=== PATIENT | male | born 1970 | race Caucasian/White ===

== ENCOUNTER 2021-11-19 17:19 | Emergency (ER) | payer OTHER, SELFPAY ==
[2021-11-19 17:40] VITALS: BP 158/91; PULSE 109; RESP 18; TEMP 36.6; O2SAT 97; BMI 24.3
[2021-11-19] MEDS: OXYMETAZOLINE NASAL SPRAY 15 ML 2 SPRAYS NASAL (17:44)
--- NOTE | 2021-11-19 17:46 | PC.NURSE ---
Patient brought back to RM 2. MD at bedside, unable to locate area of bleeding. Rhino Rocket placed in left nostril. Patient tolerated well.
--- NOTE | 2021-11-19 18:14 | ED_ITS ---
HPI - Epistaxis General Chief complaint: Nasal Problem Stated complaint: nose bleeds Time Seen by Provider: 11/19/21 17:44 History of Present Illness HPI Narrative: 51M nonsmoker without any significant chronic medical history presents with significant other the chief complaint of brisk bleeding from his left nostril that started spontaneously about a 1/2 hour prior to his arrival. He denies any trauma, illness, or use of blood thinners including aspirin. He has no systemic findings such as dizziness, weakness or lightheadedness. He states he has had difficulty pinching off the bleeding and states he can feel going down the back of his throat also when he pinches it comes out his right nostril as well. He states he has been having increasing episodes of bleeding since he moved here from [place]. He has a referral to see ENT in about a month as it is Related Data Allergies Allergy/AdvReac Type Severity Reaction Status Date / Time No Known Drug Allergies Allergy Verified 11/19/21 17:44 Review of Systems Review of Systems Narrative: GENERAL: Denies chills, fatigue, malaise, fever, sweats. HEENT: See HPI RESPIRATORY: Denies dyspnea, cough, wheezing, hemoptysis, sputum. CARDIOVASCULAR: Denies chest pain, palpitations, orthopnea, edema, GASTROINTESTINAL: Denies nausea, vomiting, abdominal pain, diarrhea, constipation, melena. : Denies dysuria, frequency, incontinence, hematuria, urinary retention. MUSCULOSKELETAL: denies weakness, joint pain, or bony pain SKIN: Denies rash, skin lesions, or other NEUROLOGIC: Denies weakness, headache, numbness, change in speech, confusion, seizures, incoordination. PSYCHIATRIC: No concerning psychosocial issues. 12 point review of systems is negative except for those stated above Patient History Medical History Anxiety Basal cell carcinoma (BCC) Benign familial tremor (~1999) Bilateral shoulder pain Bladder spasm (~2001) Chicken pox (~1976) Depression Esophageal spasm (~2016) Foot pain (~2014) Hearing loss (~2018) Hypertension (~2020) Low testosterone (~2009) Osteoarthritis (~2014) Skin cancer (~2011) Sleep disorder Tinnitus (~2018) Surgical History Anesthesia History of foot surgery (~08/2014) History of knee surgery (~06/2014) History of nasal septoplasty (~03/2019) History of shoulder replacement S/P deep brain stimulator placement (~2014) Social History Smoking Status: Never smoker Smoking Status: Never smoker Substance Use Type: does not use Exam Narrative Exam Narrative: GENERAL: [51] year old patient appears stated age. Well-developed patient, in mild distress. HEAD: Atraumatic. Normocephalic. EYES: Pupils equal round and reactive. Extraocular motions intact. No scleral icterus. No injection or drainage. ENT: Heavy bleeding with fresh clots from left nostril, unable to visualize source of bleeding, blood noted in posterior pharynx NECK: Trachea midline. Non tender CARDIOVASCULAR: Regular rate and rhythm without murmurs, gallops, or rubs. RESPIRATORY: Clear to auscultation. Breath sounds equal bilaterally. No wheezes, rales, or rhonchi. GASTROINTESTINAL: Abdomen soft, non-tender, nondistended. EXTREMITIES: No edema or joint tenderness. BACK: Nontender without deformity or crepitance. No flank tenderness. NEURO: AOx3. SKIN: No rash or erythema of visible areas Initial Vital Signs Initial Vital Signs: Vital Signs Temperature 97.8 F 11/19/21 17:40 Pulse Rate 109 H 11/19/21 17:40 Respiratory Rate 18 11/19/21 17:40 Blood Pressure 158/91 H 11/19/21 17:40 Pulse Oximetry 97 11/19/21 17:40 Procedures Epistaxis Control Nostril: left Nose Prepped With: oxymetazoline Direct Inspection: yes and unable to visualize Clots Removed by: blowing nose and suction Cautery Used: none Device Inserted: hemostatic balloon Patient Tolerated Procedure: well Course Orders Ordered: Discontinued Medications Oxymetazoline HCl (Oxymetazoline Nasal [place] 15 Ml) 2 sprays NASAL NOW ONE Stop: 11/19/21 17:37 Last Admin: 11/19/21 17:44 Dose: 2 sprays Documented by: RAMON Reevaluation(s) Reevaluation #1: Patient observed for about 45 minutes after the insertion of rhino rocket, no bleeding continues. Patient's vitals are stable, hemostasis achieved, he denies any systemic symptoms. Return precautions given and questions answered to his apparent satisfaction Vital Signs Vital signs: Vital Signs - 8 hr 11/19/21 17:40 11/19/21 18:33 Temperature 97.8 F Pulse Rate 109 H 83 Respiratory Rate 18 19 Blood Pressure 158/91 H 139/81 Pulse Oximetry 97 97 Discharge Plan Departure Patient Disposition: Home Clinical Impression: Epistaxis Instructions: DI for Nosebleed Activity Restrictions/Additional Instructions: *You have been diagnosed with [ acute posterior epistaxis ] *What to do: * do not blow your nose, stick your finger in her nose, or disturb nose for the next 24 hr. If you must sneeze please sneeze out your mouth like we talked about *if the Rhino Rocket comes out it's ok if there is no bleeding. If your bleeding starts again at home please place a portion of a cotton ball in your nostril and squirt some of the Afrin you were given in your nose. Apply the nose clamp and uses a watch or o'clock to time yourself for 15 min. At the end 15 min recheck for bleeding, if you continue to bleed please repeat the process for another 15 min. If at the end of 30 min you still have bleeding you should return to the emergency department *Follow up with ENT doctor, call tomorrow morning for an appointment. Let them know you were seen in the Emergency Department and that we ask that you be seen in follow up *Return to ER if you should have any new, worsening or concerning symptoms * if you are bleeding starts again at home please place a portion of a c otton ball in your nostril and squirt some of the Afrin you were given in your nose. Apply the nose clamp and uses a watch or o'clock to time yourself for 15 min. At the end 15 min recheck for bleeding, if you continue to bleed please repeat the process for another 15 min. If at the end of 30 min you still have bleeding you should return to the emergency department Referrals: Chay Smith MD [Physician] -
[2021-11-19 18:33] VITALS: BP 139/81; PULSE 83; RESP 19; O2SAT 97
== END 2021-11-19 18:44 | disposition home or self-care (01) ==
PROVIDERS: Emergency Provider Emergency Medicine
DX: R04.0 Epistaxis (principal)
CPT/HCPCS: 30903; 30905; 99282; A9270

== ENCOUNTER → 2022-06-17 15:38 | Outpatient (CLI) | payer OTHER, SELFPAY ==
[2022-06-17 18:06] LABS: Hematocrit 40.7 % (41-53); Hemoglobin 13.6 g/dL (13.5-17.5); Mean Corpuscular HGB Conc 33.5 % (30-36); Mean Corpuscular Hemoglobin 29.4 PG (26-34); Mean Corpuscular Volume 87.7 fL (80-100); Platelet Count 308 X10^3/uL (150-400); Red Blood Cell Count 4.64 X10^6/uL (4.5-5.9); Red Cell Distribution Width 13.7 % (11.6-14.8); White Blood Cell Count 4.5 X10^3/uL (4.5-11.0)
[2022-06-17 18:19] LABS: Alanine Aminotransferase 18 IU/L (<50); Albumin 4.3 g/dL (3.5-5.0); Albumin Globulin Ratio 1.3 (1.0-2.8); Alkaline Phosphatase 65 U/L (38-126); Aspartate Aminotransferase 34 IU/L (17-59); BUN Creatinine Ratio 19.8 (6-22); Bilirubin Total 0.3 mg/dL (0.2-1.3); Blood Urea Nitrogen 19 mg/dL (9-20); Calcium 9.5 mg/dL (8.4-10.2); Carbon Dioxide 30 mmol/L (22-32); Chloride 99 mmol/L (98-107); Cholesterol 155 mg/dL (140-199); Estimated Glomerular Filt Rate > 60 mL/min (>60); Globulin 3.2 g/dL (1.7-4.1); Glucose 76 mg/dL (70-100); HDL Cholesterol 43 mg/dL (40-60); HEMOLYSIS < 15 (0-50); LDL Cholesterol Calculated 99 mg/dL (<100); Potassium 5.1 mmol/L (3.4-5.1); Sodium 138 mmol/L (137-145); Total Protein 7.5 g/dL (6.3-8.2); Triglycerides 63 mg/dL (35-150)
[2022-06-17 18:33] LABS: Follicle Stimulating Hormone < 0.66 mIU/mL; Luteinizing Hormone < 0.216 mIU/mL
[2022-06-17 18:35] LABS: Prolactin 11.5 ng/mL (3.7-17.9)
[2022-06-17 18:50] LABS: Prostate Specific Antigen 2.35 ng/mL (0.10-4.00)
[2022-06-17 18:52] LABS: Testosterone 422 ng/dL (71.8-623)
== END ==
PROVIDERS: PCP Internal Medicine; Referring Provider Internal Medicine; Visit Provider Internal Medicine
DX: Z00.00 Encounter for general adult medical examination without abnormal findings (principal); I10 Essential (primary) hypertension; E78.2 Mixed hyperlipidemia; Z12.5 Encounter for screening for malignant neoplasm of prostate
CPT/HCPCS: 36415; 80053; 80061; 83001; 83002; 84146; 84153; 84403; 84443; 85027; G0103

== ENCOUNTER → 2022-06-25 14:45 | Outpatient (CLI) | payer OTHER, SELFPAY ==
--- NOTE | 2022-06-25 14:45 | DI.RAD.S_ITS ---
PROCEDURE: XR DEXA AXIAL SKELETON INDICATIONS: hypogonadism COMPARISON: None. FINDINGS: This blank DEXA report has been sent in error by the PACS system. The correct and complete report will be forthcoming in 1-2 days. Thank you for your patience and understanding. Dictated by: Clarke Palomares M.D. on 07/01/2022 at 15:07 Approved by: Clarke Palomares M.D. on 07/01/2022 at 15:07
== END ==
PROVIDERS: PCP Internal Medicine; Referring Provider Internal Medicine; Visit Provider Internal Medicine
DX: Z13.820 Encounter for screening for osteoporosis (principal); E29.1 Testicular hypofunction
CPT/HCPCS: 77080

== ENCOUNTER → 2022-07-02 15:19 | Outpatient (CLI) | payer OTHER, SELFPAY ==
[2022-07-02 16:25] LABS: COVID19 -Nasal RAPID Negative (Negative)
== END ==
PROVIDERS: PCP Internal Medicine; Referring Provider Internal Medicine; Visit Provider Internal Medicine
DX: Z20.822 Contact with and (suspected) exposure to COVID-19 (principal)
CPT/HCPCS: 87635; C9803

== ENCOUNTER → 2022-07-03 14:37 | Outpatient (CLI) | payer OTHER, SELFPAY ==
--- NOTE | 2022-07-08 11:12 | PM.PFT.1 ---
Pulmonary Function Test Referral & Results Date Patient Seen: 07/03/22 Requesting provider: Trevon Lemus Results: The spirometry demonstrates an FVC of 4.82 L which is 81% of predicted. The FEV1 was measured at 3.59 L which is 78% of predicted. The FEV1/FVC ratio was 74 which is 95% of predicted. Following the administration of bronchodilator there was a 19% improvement in FEV1 and a 82% improvement in FEF 25-75%. Lung volumes show an SVC of 4.86 L which is 86% of predicted. The diffusing capacity was measured at 32.46 which is 83% of predicted. The maximum voluntary ventilation was probably normal Interpretation: This study demonstrates probably mild obstructive lung disease based on minimal reduction FEV1 although FEV1/FVC ratio is preserved. There is evidence of significant benefit following bronchodilator with a 19% improvement in FEV1 and an 82% improvement in FEF 25-75%. Shape a flow volume loop also does support the presence of some degree of obstructive lung disease Lung volumes are minimally reduced and should be considered either normal or perhaps evidence of very mild restrictive lung disease There is a very minimal reduction in diffusing capacity as well suggesting the possibility of disease at the capillary alveolar level Clinical correlation suggested
== END ==
PROVIDERS: PCP Internal Medicine; Referring Provider Internal Medicine; Visit Provider Internal Medicine
DX: J45.20 Mild intermittent asthma, uncomplicated (principal); Z87.891 Personal history of nicotine dependence
CPT/HCPCS: 94060; 94726; 94729

== ENCOUNTER → 2022-07-25 14:33 | Outpatient (CLI) | payer OTHER, SELFPAY ==
--- NOTE | 2022-07-25 | DI.CT.S_ITS ---
PROCEDURE: CT SHOULDER LEFT WITHOUT CON INDICATIONS: Polyosteoarthritis, unspecified TECHNIQUE: Noncontrast 1-1.5 mm thick sections acquired from the acromioclavicular joint to the inferior scapula, with coronal and sagittal reformatting. COMPARISON: None. FINDINGS: Image quality: There is metallic streak artifact from patient's shoulder prosthesis limiting evaluation. Bones: There is a left glenohumeral joint prosthesis demonstrated with associated metallic streak artifact secondary to the metallic humeral head component. There is a radiolucent glenoid component. No definite acute fracture or dislocation. There is irregularity along the margins of the fixation screws in the glenoid. Small clustered calcifications suggestive of mild fragmentation are demonstrated along the inferior aspect of the glenoid. No suspicious periprosthetic lucencies along the humeral head component. Soft tissues: There is a calcified joint body within the axillary pouch measuring up to 1.0 cm. Visualized musculature appears preserved. IMPRESSION: 1. Left glenohumeral prosthesis demonstrated without definite acute fracture or dislocation. 2. Irregularity along the margins of the fixation screws in the glenoid. The findings are nonspecific but loosening or infection cannot be excluded. 3. Mild fragmentation along the inferior aspect of the glenoid. The findings may be associated with fixation screw tracks in the inferior glenoid and again raise the possibility of loosening or infection. 4. Calcified joint body within the axillary pouch. Dictated by: Hilario Dawson M.D. on 07/27/2022 at 2:06 Approved by: Hilario Dawson M.D. on 07/27/2022 at 2:14
== END ==
PROVIDERS: PCP Internal Medicine; Referring Provider Internal Medicine; Visit Provider Internal Medicine
DX: M15.9 Polyosteoarthritis, unspecified (principal); Z96.612 Presence of left artificial shoulder joint
CPT/HCPCS: 73200

== ENCOUNTER → 2022-09-02 14:56 | Outpatient (CLI) | payer OTHER, SELFPAY ==
--- NOTE | 2022-09-02 14:57 | DI.CT.S_ITS ---
PROCEDURE: CT SINUS SCREEN WO CON INDICATIONS: CHRONIC PANSINUSITIS TECHNIQUE: Noncontrast 3.0 mm axial images acquired from the frontal sinuses to the mid-sella, with coronal and sagittal reformats. For radiation dose reduction, the following was used: automated exposure control, adjustment of mA and/or kV according to patient size. COMPARISON: None. FINDINGS: Image quality: Excellent. Maxillary Sinuses: No bony remodeling or destruction. Mild bilateral maxillary sinus mucosal thickening. Ethmoid Air Cells: No bony remodeling or destruction. Sinuses are clear. Sphenoid Sinuses: No bony remodeling or destruction. Mild mucosal thickening within the right sphenoid sinus.. Frontal Sinuses: No bony remodeling or destruction. Sinuses are clear. Ostiomeatal Complexes: Ostiomeatal complexes are patent. No Elaine cells. Miscellaneous: Visualized intra-orbital contents are normal. Right middle turbinate aleksey bullosa is present. No nasal septal deviation. Bilateral brainstem stimulators are present. IMPRESSION: 1. Mild maxillary and right sphenoid sinus mucosal thickening. 2. Right middle turbinate aleksey bullosa. Dictated by: Abdi Chopra M.D. on 09/02/2022 at 15:47 Approved by: Abdi Chopra M.D. on 09/02/2022 at 15:48
== END ==
PROVIDERS: PCP Internal Medicine; Referring Provider Otolaryngology; Visit Provider Otolaryngology
DX: J32.4 Chronic pansinusitis (principal); J34.89 Other specified disorders of nose and nasal sinuses; R43.8 Other disturbances of smell and taste; J34.3 Hypertrophy of nasal turbinates; Z96.82 Presence of neurostimulator
CPT/HCPCS: 70486

== ENCOUNTER 2022-11-27 20:35 | Emergency (ER) | payer OTHER, SELFPAY ==
[2022-11-27] VITALS (21 sets, daily range): BP systolic 141–184; BP diastolic 70–95; PULSE 83–108; RESP 19–49; TEMP 37.6; O2SAT 93–96; BMI 25.0
--- NOTE | 2022-11-27 20:42 | DI.RAD.S_ITS ---
PROCEDURE: XR SHOULDER RT MIN 2V INDICATIONS: pain with deformity TECHNIQUE: 2 views of the shoulder were acquired. COMPARISON: None. FINDINGS: Bones: No fractures but there has been a prior right total shoulder arthroplasty with current anterior subcoracoid dislocation. No suspicious bony lesions. Visualized ribs appear intact. Soft tissues: No suspicious soft tissue calcifications. IMPRESSION: Right total shoulder arthroplasty, currently dislocated anteriorly into the subcoracoid position. No associated fracture or evidence of device loosening or disruption. Dictated by: Esdras Reed M.D. on 11/27/2022 at 20:52 Approved by: Esdras Reed M.D. on 11/27/2022 at 20:53
--- NOTE | 2022-11-27 20:46 | PC.NURSE ---
Offered sling to patient at this time, patient adamantly refused sling at this time.
--- NOTE | 2022-11-27 21:10 | PC.NURSE ---
Pt in the lobby and not happy that he is not in a room yet. Pt states I am losing my pulse in that arm. I checked radial pulse by palpation,it was strong and palpable. Pt offered a sling for comfort which he refused at this time. Pt stated I can't move my arm to put the sling on and I have the highest pain tolerance in the world.. I informed pt that we are working on getting a room for him as soon as possible.
--- NOTE | 2022-11-27 21:11 | PC.NURSE ---
While returning to the ED this RN was flagged down by patient. Pt asked to speak to charge nurse regarding his care. Pt reports 10/10 pain, numbness and tingling to right hand. This RN felt a strong, bounding radial pulse of right hand. Offered patient sling as well as ice, but patient declined both. Let YOSEPH Hughes and YOSEPH Deutsch know patient's request.
--- NOTE | 2022-11-27 21:49 | ED.UPPEXIN ---
HPI - Extremity Injury (Upper) General Chief Complaint: Extremity Injury, Upper Stated Complaint: Reverse shoulder replacement popped out Time Seen by Provider: 11/27/22 21:35 Source: patient Mode of arrival: Ambulatory History of Present Illness HPI narrative: 52-year-old male former smoker with history of hypertension, hyperlipidemia, sleep apnea, deep brain stimulator presents with right shoulder dislocation within the last hour. He denies any specific or memorable event that led to the dislocation but now has significant pain and range of motion limited both by pain and mechanical obstruction. He does have numbness in his hand and fingers. He had a reverse shoulder surgery in 2019 and has had 1 prior dislocation that he reports was quite difficult to reduce. He is otherwise well and free of complaint Related Data Home Medications Medication Instructions Recorded Confirmed sodium oxybate 500 mg/mL oral 4.5 g PO BID 12/09/21 06/17/22 solution (Xyrem) cetirizine 10 mg tablet (Zyrtec) 30 mg PO DAILY 06/17/22 06/17/22 fluticasone propionate 50 1 spray intranasal DAILY 06/17/22 06/17/22 mcg/actuation nasal spray,suspension (Flonase Allergy Relief) phenelzine 15 mg tablet 75 mg PO DAILY 06/17/22 06/17/22 Previous Rx's Medication Instructions Recorded pantoprazole 40 mg tablet,delayed 40 mg PO DAILY #90 tabs 01/08/22 release tadalafil 5 mg tablet 5 mg PO DAILY bph/bladder spasm 01/08/22 #90 tabs testosterone cypionate 200 mg/mL 75 mg (0.375 mL) IM 2XW #10 mL 06/17/22 intramuscular oil (Depo-Testosterone) albuterol sulfate 90 mcg/actuation 2 puff inhalation Q6H PRN 07/10/22 aerosol inhaler (ProAir HFA) shortness of breath or wheezing #8.5 grams fluticasone propionate 100 1 inh inhalation BID #60 ea 07/10/22 mcg/actuation blister powder for inhalation (Flovent Diskus) methylphenidate HCl 10 mg tablet 10 mg PO TID PRN Narcolepsy #90 09/07/22 tabs Allergies Allergy/AdvReac Type Severity Reaction Status Date / Time fluoride Allergy Mild Unknown Verified 06/17/22 12:53 lisinopril AdvReac Intermediate Cough Verified 06/17/22 12:53 Review of Systems Review of Systems Narrative: GENERAL: Denies chills, fatigue, malaise, fever, sweats. HEENT: Denies sinus pain, ear pain, sore throat, difficulty swallowing, dizziness. RESPIRATORY: Denies dyspnea, cough, wheezing, hemoptysis, sputum. CARDIOVASCULAR: Denies chest pain, palpitations, orthopnea, edema, GASTROINTESTINAL: Denies nausea, vomiting, abdominal pain, diarrhea, constipation, melena. : Denies dysuria, frequency, incontinence, hematuria, urinary retention. MUSCULOSKELETAL: See HPI SKIN: Denies rash, skin lesions, or other NEUROLOGIC: See HPI PSYCHIATRIC: No concerning psychosocial issues. 12 point review of systems is negative except for those stated above Patient History Medical History Allergic rhinitis Anxiety Asthma, mild intermittent Basal cell carcinoma (BCC) Benign familial tremor (~1999) Bilateral shoulder pain Bladder spasm (~2001) BPH w urinary obs/LUTS Depression Encounter for general adult medical examination without abnormal findings Esophageal spasm (~2016) Essential hypertension Foot pain (~2014) Generalized anxiety disorder Hearing loss (~2018) Hypogonadism Mixed hyperlipidemia Narcolepsy Obstructive sleep apnea syndrome Osteoarthritis (~2014) Skin cancer (~2011) Tinnitus (~2018) Surgical History Anesthesia History of foot surgery (~08/2014) History of knee surgery (~06/2014) History of nasal septoplasty (~03/2019) History of shoulder replacement S/P deep brain stimulator placement (~2014) S/P deep brain stimulator placement 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 Well-developed patient, in obvious distress, complaining of pain and shoulder HEAD: Atraumatic. Normocephalic. EYES: Pupils equal round and reactive. Extraocular motions intact. No scleral icterus. No injection or drainage. ENT: Nose without bleeding, purulent drainage. Throat without erythema, tonsillar hypertrophy or exudate. Airway patent. NECK: Trachea midline. Non tender CARDIOVASCULAR: Regular rate and rhythm without murmurs, gallops, or rubs. RESPIRATORY: Clear to auscultation. Breath sounds equal bilaterally. No wheezes, rales, or rhonchi. GASTROINTESTINAL: Abdomen soft, non-tender, nondistended. EXTREMITIES: Obvious deformity to right shoulder consistent with dislocation, limited range of motion secondary to mechanical obstruction and pain. No pain in elbow or wrist, patient does report numbness in his hand, no measurable weakness BACK: Nontender without deformity or crepitance. No flank tenderness. NEURO: AOx3. SKIN: No rash or erythema of visible areas Initial Vital Signs Initial Vital Signs: Vital Signs Temperature 99.6 F 11/27/22 20:39 Pulse Rate 108 H 11/27/22 20:39 Respiratory Rate 22 11/27/22 20:39 Blood Pressure 182/95 H 11/27/22 20:39 Pulse Oximetry 96 11/27/22 20:39 Oxygen Delivery Method Room Air 11/27/22 20:39 Procedures Orthopedic Joint Reduction Joint #1: Time Out Performed: Yes Side: right Joint Reduction Location: shoulder Analgesia: procedural sedation Shoulder Technique Used (if applicable): traction/counter-traction and external rotation Technique used: traction/counter-traction and direct manipulation Post-reduction neuro exam: intact Post-reduction vascular: intact Post Reduction X-Ray Obtained: Yes Post Reduction X-Ray Results: reduced Splint Applied: Yes Patient Tolerated Procedure: Well Additional Comments: Procedure attempted twice, exam suggested successful reduction after 1st attempt, x-ray suggested reduction, however after meds wore off patient is still having pain and limited range of motion. Completely successful on 2nd attempt Orthopedic Splinting/Casting Injury #1: Side: right Upper Extremity Injury Location: shoulder Upper Extremity Immobilizer: sling/shoulder immobilizer Post splinting neuro exam: intact (Significantly improved neuro exam hand no longer numb though there is still some tingling in his thumb and portion of index finger no weakness) Post splinting vascular exam: intact Placed by: Provider Procedural Sedation Consent signed: Yes Time out performed: Yes Indication: fracture/dislocation reduction ASA Class: II Mallampati Airway Classification: Class II Preparation: environmental monitoring technician applied, pulse oximeter, capnometry used, supplemental O2 applied, suction/airway equipment at bedside and IV secured IV Propofol dose (mg): 200 Intraservice time/total sedation time (min): 12 ED Sedation Level: Moderate (Concious) Patient Tolerated Procedure: Well Complications: none Additional Comments: Procedure was completed twice, 1st reduction attempt x-rays suggested successful reduction but when meds wore off pain hits he was still having pain and limited range of motion therefore it was repeated Course Orders Ordered: Discontinued Medications Propofol (Propofol 200 Mg/20 Ml Vial) 180 mg 2 mg/kg (180 mg) IV NOW ONE Stop: 11/27/22 21:49 Last Admin: 11/27/22 21:57 Dose: 180 mg Documented By: NR Propofol (Propofol 200 Mg/20 Ml Vial) 180 mg 2 mg/kg (180 mg) IV NOW ONE Stop: 11/27/22 22:09 Last Admin: 11/27/22 22:55 Dose: 180 mg Documented By: NR Consultations Consultation #1: Discussed with Dr. Jewell (ortho), including review of history, physical exam and x-rays. Recommends sling, close follow-up on Wednesday. We did discuss that there is a small amount of residual numbness on the patient's thumb and after this discussion there is no recommendation or indication for any further procedure Vital Signs Vital signs: Vital Signs - 8 hr 11/27/22 20:39 Temperature 99.6 F Pulse Rate 108 H Respiratory Rate 22 Blood Pressure 182/95 H Pulse Oximetry 96 Oxygen Delivery Method Room Air MDM - Extremity Injury (Upper) MDM Narrative Medical decision making narrative: [52] year old patient presents with shoulder pain and concern for dislocation Multiple etiologies for patient's symptoms considered including, but not limited to: [Dislocation, fracture, sprain versus other] Prior Charts reviewed in our EMR Primary Historian: patient Imaging reviewed: Initial x-ray confirms anterior dislocation, 2nd x-ray would suggest successful reduction, however after repeat procedure the reduction is now clear as confirmed by 3rd x-ray Consultations: Orthopedist as noted above Patient's symptoms improved over duration of stay with above-stated therapies. Findings and discharge diagnosis discussed with patient/family followed by verbalization of understanding Return precautions discussed with patient/family whom verbalize understanding of diagnosis and plan Discharge Plan Departure Patient Disposition: Home Clinical Impression: Anterior dislocation of right shoulder Instructions: DI for Shoulder Dislocation Activity Restrictions/Additional Instructions: *You have been diagnosed with [ Right shoulder disclocation *What to do: *Please continue to take your regular medications as directed. [ ] New medication prescriptions sent to your pharmacy: [ ] [ ] New medication written as a paper prescription [x] Tylenol and occasional Motrin for pain *Please follow up with [ [facility] in 2-3 days, call for an appointment. Let them know you were seen in the Emergency Department and that we ask that you be seen in follow up. We will electronically transmit a record of today's note if your PCP is in our system *Return to Emergency Department if you should have any new, worsening or concerning symptoms, such as [worsening pain, significant swelling, cold extremities, numbness, tingling, weakness or other bothersome symptoms Keep your arm in the sling until follow up. Prescriptions: No Action Flovent Diskus 100 mcg/actuation blister with device 1 inh inhalation BID Qty: 60 5RF albuterol sulfate [ProAir HFA] 90 mcg/actuation HFA aerosol inhaler 2 puff inhalation Q6H PRN (Reason: shortness of breath or wheezing) Qty: 8.5 5RF methylphenidate HCl 10 mg tablet 10 mg PO TID PRN (Reason: Narcolepsy) Qty: 90 0RF Xyrem 500 mg/mL solution 4.5 g PO BID Rx Instructions: Taken 1x before bed. Wakes up 2-3 hours after and takes 2nd dose. phenelzine 15 mg tablet 75 mg PO DAILY Patient Comments: TAKE 5 TABLETS BY MOUTH DAILY fluticasone propionate [Flonase Allergy Relief] 50 mcg/actuation spray,suspension 1 spray intranasal DAILY Rx Instructions: administer into each nostril cetirizine [Zyrtec] 10 mg tablet 30 mg PO DAILY testosterone cypionate [Depo-Testosterone] 200 mg/mL oil 75 mg IM 2XW Qty: 10 1RF pantoprazole 40 mg tablet,delayed release (DR/EC) 40 mg PO DAILY Qty: 90 3RF tadalafil 5 mg tablet 5 mg PO DAILY Qty: 90 3RF Referrals: Josh Jewell MD [Physician] - Trevon Lemus MD [Primary Care Provider] - Stand Alone Forms: Patient Portal/API
[2022-11-27] MEDS: propofoL 200 MG/20 ML VIAL 180 MG IV ×2 (21:57→22:55)
--- NOTE | 2022-11-27 22:18 | DI.RAD.S_ITS ---
PROCEDURE: XR SHOULDER RT 1V INDICATIONS: POST REDUCTION TECHNIQUE: Single frontal view of the shoulder were acquired. COMPARISON: [facility], CR, XR SHOULDER RT MIN 2V, 11/27/2022, 20:40. FINDINGS: Bones: No fractures or dislocations. No suspicious bony lesions. Visualized ribs appear intact. Soft tissues: No suspicious soft tissue calcifications. IMPRESSION: Interval reduction of dislocation right shoulder. No fracture found. Dictated by: Esdras Reed M.D. on 11/27/2022 at 22:45 Approved by: Esdras Reed M.D. on 11/27/2022 at 22:46
--- NOTE | 2022-11-27 22:20 | PC.NURSE ---
proprofol pushed by provider Mendoza. 40mg propofol @2157 30mg @2158 40mg @2159 30mg@2200 20mg @2202 30mg@2203 10mg@2205 total of 200mg propofol given. pt placed on 2L O2 during procedure by RT due to oxygen dipping into low 90s pt maintained airway during procedure. xray ordered after procedure, noted joint not in place, procedure to be preformed a second time.
--- NOTE | 2022-11-27 22:50 | DI.RAD.S_ITS ---
PROCEDURE: XR SHOULDER RT 1V INDICATIONS: RELOCATION TECHNIQUE: Single frontal views of the shoulder were acquired. COMPARISON: [facility], CR, XR SHOULDER RT 1V, 11/27/2022, 22:03. [facility], CR, XR SHOULDER RT MIN 2V, 11/27/2022, 20:40. FINDINGS: Bones: No fractures or dislocations. Plain film imaging earlier this evening at approximately 8:40 p.m. Had shown clear anterior subcoracoid dislocation of the right shoulder total arthroplasty. A subsequent evaluation at approximately 10:00 p.m. Had appeared improved in malalignment but the current study shows what appears to be successful complete reduction of shoulder dislocation No suspicious bony lesions. Visualized ribs appear intact. Soft tissues: No suspicious soft tissue calcifications. IMPRESSION: Apparent complete reduction of shoulder dislocation with reference to the 2 prior studies earlier this evening. No osseous fracture found, no device loosening or disruption. Dictated by: Esdras Reed M.D. on 11/27/2022 at 23:02 Approved by: Esdras Reed M.D. on 11/27/2022 at 23:04
--- NOTE | 2022-11-27 22:56 | PC.NURSE ---
during second attempt at relocation of right shoulder, provider administered propofol to patient in increments as follows. 80mg @ 2238 50mg @ 2239 50mg @2241 20mg @2244 patient placed back in sling by provider and nurse. shoulder immobilizer. xray ordered immediately. pt rousable to verbal stimuli almost immediately after procedure.
== END 2022-11-27 23:42 | disposition home or self-care (01) ==
PROVIDERS: Emergency Provider Emergency Medicine; PCP Internal Medicine
DX: S43.004A Unspecified dislocation of right shoulder joint, initial encounter (principal)
CPT/HCPCS: 23650; 73020; 73030; 99152; 99284; J2704

== ENCOUNTER → 2023-01-04 16:24 | Outpatient (CLI) | payer OTHER, SELFPAY ==
[2023-01-04 16:55] LABS: Hematocrit 41.4 % (41-53); Mean Corpuscular HGB Conc 33.7 % (30-36); Mean Corpuscular Hemoglobin 27.7 PG (26-34); Mean Corpuscular Volume 82.2 fL (80-100); Platelet Count 286 X10^3/uL (150-400); Red Blood Cell Count 5.04 X10^6/uL (4.5-5.9); Red Cell Distribution Width 14.9 % (11.6-14.8); White Blood Cell Count 5.7 X10^3/uL (4.5-11.0)
[2023-01-04 17:15] LABS: Neutrophils Absolute Manual 3249 /uL (3000-5900); Total Cells Counted 100
[2023-01-04 17:17] LABS: RBC Morphology Normal Morphology
[2023-01-04 17:30] LABS: Alanine Aminotransferase 31 IU/L (<50); Albumin 4.4 g/dL (3.5-5.0); Albumin Globulin Ratio 1.2 (1.0-2.8); Alkaline Phosphatase 88 U/L (38-126); Aspartate Aminotransferase 32 IU/L (17-59); BUN Creatinine Ratio 25.3 (6-22); Bilirubin Total 0.2 mg/dL (0.2-1.3); Blood Urea Nitrogen 25 mg/dL (9-20); Calcium 9.1 mg/dL (8.4-10.2); Carbon Dioxide 29 mmol/L (22-32); Chloride 99 mmol/L (98-107); Estimated Glomerular Filt Rate > 60 mL/min (>60); Globulin 3.6 g/dL (1.7-4.1); Glucose 97 mg/dL (70-100); HEMOLYSIS < 15 (0-50); Potassium 4.7 mmol/L (3.4-5.1); Sodium 137 mmol/L (137-145)
[2023-01-04 17:58] LABS: Prostate Specific Antigen 0.733 ng/mL (0.10-4.00)
[2023-01-04 18:00] LABS: Testosterone 199 ng/dL (71.8-623)
== END ==
PROVIDERS: PCP Internal Medicine; Referring Provider Internal Medicine; Visit Provider Internal Medicine
DX: I10 Essential (primary) hypertension (principal)
CPT/HCPCS: 36415; 80053; 84153; 84403; 85025

== ENCOUNTER → 2023-06-23 16:41 | Outpatient (CLI) | payer OTHER, SELFPAY ==
[2023-06-23 17:35] LABS: Hematocrit 44.7 % (41-53); Hemoglobin 15.2 g/dL (13.5-17.5); Mean Corpuscular HGB Conc 33.9 % (30-36); Mean Corpuscular Hemoglobin 27.9 PG (26-34); Mean Corpuscular Volume 82.2 fL (80-100); Platelet Count 239 X10^3/uL (150-400); Red Blood Cell Count 5.44 X10^6/uL (4.5-5.9); Red Cell Distribution Width 16.6 % (11.6-14.8); White Blood Cell Count 5.9 X10^3/uL (4.5-11.0)
[2023-06-23 17:47] LABS: Alanine Aminotransferase 40 IU/L (<50); Albumin 4.6 g/dL (3.5-5.0); Albumin Globulin Ratio 1.2 (1.0-2.8); Alkaline Phosphatase 83 U/L (38-126); Aspartate Aminotransferase 32 IU/L (17-59); BUN Creatinine Ratio 15.9 (6-22); Bilirubin Total 0.2 mg/dL (0.2-1.3); Blood Urea Nitrogen 17 mg/dL (9-20); Calcium 9.8 mg/dL (8.4-10.2); Carbon Dioxide 29 mmol/L (22-32); Chloride 100 mmol/L (98-107); Cholesterol 179 mg/dL (140-199); Estimated Glomerular Filt Rate > 60 mL/min (>60); Globulin 3.8 g/dL (1.7-4.1); Glucose 99 mg/dL (70-100); HDL Cholesterol 54 mg/dL (40-60); HEMOLYSIS 28 (0-50); LDL Cholesterol Calculated 97 mg/dL (<100); Potassium 4.8 mmol/L (3.4-5.1); Sodium 138 mmol/L (137-145); Total Protein 8.4 g/dL (6.3-8.2); Triglycerides 138 mg/dL (35-150)
[2023-06-23 18:16] LABS: Prostate Specific Antigen 5.42 ng/mL (0.10-4.00)
[2023-06-23 18:19] LABS: Testosterone 430 ng/dL (71.8-623)
== END ==
PROVIDERS: PCP Internal Medicine; Referring Provider Internal Medicine; Visit Provider Internal Medicine
DX: I82.622 Acute embolism and thrombosis of deep veins of left upper extremity (principal); I10 Essential (primary) hypertension; E78.2 Mixed hyperlipidemia; N13.8 Other obstructive and reflux uropathy; N40.1 Benign prostatic hyperplasia with lower urinary tract symptoms
CPT/HCPCS: 36415; 80053; 80061; 84153; 84403; 85027

== ENCOUNTER → 2023-06-30 14:47 | Outpatient (CLI) | payer OTHER, SELFPAY ==
[2023-06-30 19:23] LABS: Prostate Specific Antigen 2.34 ng/mL (0.10-4.00)
== END ==
PROVIDERS: PCP Internal Medicine; Referring Provider Internal Medicine; Visit Provider Internal Medicine
DX: R97.20 Elevated prostate specific antigen [PSA] (principal)
CPT/HCPCS: 36415; 84153

== ENCOUNTER → 2023-07-12 15:08 | Outpatient (CLI) | payer OTHER, SELFPAY | LOC: LAB 15:14 | PROVIDERS: PCP Internal Medicine; Referring Provider Physician Assistant; Visit Provider Physician Assistant | DX: D89.40 Mast cell activation, unspecified (principal) | CPT/HCPCS: 36415; 82570; 83520; 84150 ==

== ENCOUNTER 2023-12-14 06:20 | Day surgery (SDC) | payer BC, SELFPAY ==
[2023-12-08 10:07] VITALS: BMI 25.0
[2023-12-14] VITALS (13 sets, daily range): BP systolic 110–150; BP diastolic 57–81; PULSE 58–71; RESP 10–18; TEMP 36.1–36.6; O2SAT 94–100; BMI 24.0
--- NOTE | 2023-12-14 | PATH_ITS ---
[facility] Accession Number: [id number] No. of containers..01 Tissue . 01 Material submitted: . prostate - PROSTATE CHIPS . 01 Diagnosis: PROSTATE GLAND, TRANSURETHRAL RESECTION: Primarily blood; prostate parenchyma with stromal fibromuscular hyperplasia. Negative for neoplasia. MRV 12/20/2023 1248 Local . 01 Electronically signed: . Zahraa Newton MD, Pathologist NPI- [id number] . 01 Gross description: . Received in formalin with two identifiers and prostate chips, are multiple baum soft tissue fragments admixed with hemorrhagic material weighing less than 1 gram and aggregating to 1.9 x 1.5 x 0.5 cm. Submitted entirely in cassette A1. ([id number]) /MRV 12/16/2023 1551 Local . 01 Pathologist provided ICD-10: N40.1, N32.0 . 01 CPT . 454926 Specimen Comment: A courtesy copy of this report has been sent to [phone] Performed at: 01 [facility] [address] [place] [address], [place], [place] [id number] MD Hilario Farrar MD Phone: [phone]
[2023-12-14] MEDS: ACETAMINOPHEN 325 MG TABLET 975 MG PO (07:01)
[2023-12-14] MEDS: LACTATED RINGERS 1,000 ML 42 ML IV ×2 (07:02→08:37)
--- NOTE | 2023-12-14 07:42 | PM.PREOP ---
Pre-operative Note COVID-19 COVID-19 status: Not tested Interval Note History & Physical reviewed/Exam performed by Physician: Yes Changes to H&P: No
[2023-12-14] MEDS: CEFAZOLIN 2 GM/100 ML PREMIX 100 ML IV (07:50)
--- NOTE | 2023-12-14 08:07 | SUR.OPER ---
Lithotomy on padded OR bed, head on pillow, arms secured on padded arm boards at <90 degrees abduction. Legs secured in padded yellow fins stirrups.
--- NOTE | 2023-12-14 09:32 | PM.OP.1 ---
Procedure & Clinicians Procedure: Aquablation CPT code 0421 T, transrectal ultrasound, Transurethral resection of prostate at bladder neck with cautery of bleeding sites Same procedure as scheduled: Yes Indications: This 53-year-old male presented with worsening symptoms of bladder outlet obstruction, benign prostatic hyperplasia and lower urinary tract symptoms. By ultrasound was found to have a 35 g prostate. Had a international prostate symptom score of 26 with a bother index of 6 patient had a Q max of 7.2 by uroflow and presents at this time for Aquablation to treat his outlet obstructive symptoms. Surgeon: Phill Finney Click Yes if Unassisted: Yes Anesthesia Type: General Operative Notes Findings: At procedure: Urethral meatus was normal urethra is normal along its length prostate exhibited trilobar obstructive character. Ureteral orifices in normal position with clear efflux and the remainder of the bladder was normal. At transrectal ultrasound no hypoechoic lesions or other abnormalities were noted at the end of the procedure there was a nice hypoechoic cavity where the tissue had been resected. At the end of the procedure the ureteral orifices were intact and unaffected. Hemostasis was good Closure Type: not applicable Specimen(s): other (Prostate chips) Prosthetic devices, grafts, tissues, transplants, or devices: 24 [place] 30 cc hematuria catheter with 45 cc in the balloon left in place to the urethra prostate and into the bladder. Applied: catheter (Twenty-four [place] 30 cc hematuria catheter with 45 cc in the balloon) Estimated Blood Loss (mL): 50 Blood products transfused: none Procedure in detail: Procedure in detail: After informed consent was obtained, the patient was identified brought to the operating room where he is placed on the operative table and anesthesia was induced and maintained. Ensuring an adequate level of anesthesia of the patient was transitioned to the lithotomy position where he was prepped. After prep ensuring an adequate level of anesthesia, after time-out, with the articulating arms attached to the table the ultrasound stepper was mounted to the articulating arm. The ultrasound probe was then attached to the stepper. The patient's rectum was filled with 60 cc of lubricant. The ensuring correct alignment the ultrasound probe was inserted in the prostate visualized in both the transverse and longitudinal planes. Measures were made to make sure that the ultrasound probe was centered. The bladder neck, verumontanum central and transition zones were identified. With the ultrasound in appropriate position the 24 [place] aqua beam handpiece was then passed through the urethra prostate and into the bladder under direct vision as well as by ultrasound guidance. With the occupying aqua beam handpiece in place the articulating arm was brought in and the aqua beam handpiece was docked. It was ensured that the ultrasound and handpiece were coli and and inappropriate position. The cystoscope was then retracted to visualize the verumontanum this was noted both visually and on the ultrasound. Then to the external sphincter and the scope was left just proximal to the external sphincter. The alignment of the ultrasound probe and aqua beam handpiece was once again checked in ensured compression was applied by lifting the ultrasound probe against the prostate. Horizontal alignment of the hand piece and water just was performed. This was in the prostate. Then the treatment zones were planned using real-time ultrasound to visualize the contour of the prostate and appropriate landmarks specifically begin treatment bladder neck mid prostate and veru. Treatment contours were then adjusted to conform to the intended resected and resection margins. And again the treatment contour was confirmed the treatment was then begun under visualization and ultrasound guidance. With the 1st pass completed a 2nd pass was performed after adjusting the landmarks. Again the positions were confirmed these were all raised. The 2nd pass was completed and at this point the hand piece was removed under direct vision after advancing the cystoscope all the way in. With this removed a resectoscope was then passed through the urethra prostate and into the bladder under direct vision. The bladder neck was visualized and from the 3 o'clock to 9 o'clock position the tissue was resected at the bladder neck down to the fibrous tissue. Points of bleeding were controlled with the electrocautery. The bladder neck was then visualized anteriorly there was a single bleeder which was cauterized. The resectoscope was then brought back to the apex of the prostate and there was a single bleeder which was also cauterized. Again the resecting element was removed and Ellik evacuator was employed to evacuate the bladder of clots and prostate tissue. The patient's blood pressure was checked and adjusted by anesthesia more toward his awake blood pressure. Again the bladder neck was visualized there were a couple of more points of bleeding which were cauterized. The ureteral orifices were visualized and appeared intact. At this point the resectoscope was removed with hemostasis appearing good there was a pause at the apex of the prostate prostate appeared completely resected there was no arterial bleeding noted scope was removed the 24 [place] catheter was then passed easily under ultrasound guidance and into the bladder the balloon was filled with 45 cc of sterile water and the catheter placed to gravity drainage. At this point the patient was awakened having tolerated the procedure well the catheter was hooked up to continuous bladder irrigation and gravity drainage patient was transferred to the postanesthesia care unit again having tolerated the procedure well. At this point the effluent what appeared to be in good shape benefit continues this way the patient will likely be discharged to home and there were no complications. Total Aquablation time for the 2 passes was 6 minutes total resection time was 18 minutes. Complications: none Post-operative Condition: stable Disposition: PACU Plan for aftercare: If CBI remains clear it will be weaned to off if the urine remains in acceptable color the patient will be discharged to home. If not the safe and right thing will be done.
[2023-12-14] MEDS: OXYCODONE IR 5 MG TABLET PO ×2 (09:38→10:09)
--- NOTE | 2023-12-14 09:46 | SUR.PHASEI ---
at bedside. See new order for Dilaudid IV
[2023-12-14] MEDS: HYDROMORPHONE 1 MG INJ 0.5 MG IV (09:49)
--- NOTE | 2023-12-14 10:04 | SUR.PHASEI ---
Dr Finney to bedside. Rate of CBI adjusted. STAT lock applied. Currently pink to red
[2023-12-14] MEDS: OXYBUTYNIN 5 MG TABLET PO (10:09)
--- NOTE | 2023-12-14 11:29 | SUR.PHASEII ---
CBI clamped at 1128 hrs.
--- NOTE | 2023-12-14 13:30 | SUR.PHASEII ---
Hemoturia scale #3 at discharge.
== END 2023-12-14 13:16 | disposition home or self-care (01) ==
PROVIDERS: PCP Internal Medicine; Referring Provider Urology; Visit Provider Urology
PROC: 0VT08ZZ Resection of Prostate, Via Natural or Artificial Opening Endoscopic (ICD-10-PCS; CPT 0421T; principal; 2023-12-14 07:45)
DX: N40.1 Benign prostatic hyperplasia with lower urinary tract symptoms (principal); N32.0 Bladder-neck obstruction; R33.9 Retention of urine, unspecified
CPT/HCPCS: 0421T; C2596; J0690; J1100; J1170; J2250; J2405; J2704; J3010

== ENCOUNTER → 2023-12-23 16:20 | Outpatient (CLI) | payer BC, SELFPAY ==
[2023-12-24 00:04] LABS: Testosterone 295 ng/dL (71.8-623)
== END ==
PROVIDERS: PCP Internal Medicine; Referring Provider Internal Medicine; Visit Provider Internal Medicine
DX: R79.89 Other specified abnormal findings of blood chemistry (principal)
CPT/HCPCS: 84403

== ENCOUNTER → 2023-12-27 14:08 | Outpatient (CLI) | payer BC, SELFPAY | PROVIDERS: PCP Internal Medicine; Visit Provider Urology | DX: N40.1 Benign prostatic hyperplasia with lower urinary tract symptoms (principal); N13.8 Other obstructive and reflux uropathy; R33.9 Retention of urine, unspecified; Z87.438 Personal history of other diseases of male genital organs | CPT/HCPCS: 81002; 87086 ==

== ENCOUNTER → 2024-01-10 15:04 | Outpatient (CLI) | payer BC, SELFPAY | PROVIDERS: PCP Internal Medicine; Visit Provider Urology | DX: R33.9 Retention of urine, unspecified (principal); N40.1 Benign prostatic hyperplasia with lower urinary tract symptoms; N13.8 Other obstructive and reflux uropathy | CPT/HCPCS: 87086 ==

== ENCOUNTER → 2024-07-04 15:40 | Outpatient (CLI) | payer BC, SELFPAY ==
[2024-07-04 17:25] LABS: Prostate Specific Antigen 0.916 ng/mL (0.10-4.00)
[2024-07-04 17:28] LABS: Testosterone 389 ng/dL (71.8-623)
== END ==
PROVIDERS: PCP Internal Medicine; Referring Provider Internal Medicine; Visit Provider Internal Medicine
DX: N40.1 Benign prostatic hyperplasia with lower urinary tract symptoms (principal); N13.8 Other obstructive and reflux uropathy
CPT/HCPCS: 84153; 84403

== ENCOUNTER → 2024-09-26 20:35 | Outpatient (ROUT) | payer BC, SELFPAY ==
[2024-10-25 10:55] LABS: Misc. to WA State Lab SEE SCANNED REPORTS
== END ==
PROVIDERS: PCP Internal Medicine; Visit Provider Dermatology
DX: B37.0 Candidal stomatitis (principal)
CPT/HCPCS: 87077; 87102

== ENCOUNTER → 2025-02-02 10:27 | Outpatient (CLI) | payer BC, SELFPAY ==
--- NOTE | 2025-02-02 10:32 | DI.CT.S_ITS ---
PROCEDURE: CT SHOULDER RIGHT WITHOUT CON INDICATIONS: hx of revision of total replacement of rt shoulder TECHNIQUE: Noncontrast 0.75 mm thick sections acquired from the acromioclavicular joint to the inferior scapula, with coronal and sagittal reformatting. COMPARISON: [facility], CR, XR SHOULDER RT 1V, 11/27/2022, 22:36. FINDINGS: Image quality: Diagnostic. Beam hardening artifacts are seen.. Bones: Patient is status post reverse right glenohumeral arthroplasty. Alignment of right shoulder is anatomic. No gross evidence of hardware loosening. Age indeterminate deformity involving the periprosthetic portion of the glenoid best seen on series 3 image 43 and series 2, image 66 concerning for age indeterminate periprosthetic fracture. No fracture adjacent to the humeral prosthesis is seen. Mild acromioclavicular joint osteoarthritic changes are seen with joint space narrowing and subchondral sclerosis. No suspicious intraosseous lesions. The visualized right ribs are intact. Soft tissues: There is no obvious full-thickness rotator cuff tendon rupture. No significant rotator cuff muscle atrophy is seen on sagittal images. The in no abnormal soft tissue calcifications. No significant joint effusion or calcified intra-articular loose bodies. There is no axillary lymphadenopathy. Visualized right lung field is clear. IMPRESSION: 1. Prior right glenohumeral joint reverse arthroplasty and revision with surgical hardware in expected position. No obvious hardware loosening. Cortical deformity in right glenoid adjacent to the glenoid prosthesis concerning for age indeterminate periprosthetic fracture suggest clinical correlation. No other fracture or dislocation. No suspicious bony lesions. Mild acromioclavicular joint osteoarthritis. 2. No significant joint effusion or calcified intra-articular loose bodies. No gross full-thickness rotator cuff tendon rupture or significant rotator cuff muscle atrophy. No abnormal soft tissue calcifications. Dictated by: Timbo Daly M.D. on 02/04/2025 at 0:24 Approved by: Timbo Daly M.D. on 02/04/2025 at 0:37
== END ==
PROVIDERS: PCP Internal Medicine; Referring Provider Orthopaedic Surgery; Visit Provider Orthopaedic Surgery
DX: M19.011 Primary osteoarthritis, right shoulder (principal); Z96.611 Presence of right artificial shoulder joint
CPT/HCPCS: 73200

== ENCOUNTER → 2025-03-13 15:38 | Outpatient (CLI) | payer BC, SELFPAY ==
--- NOTE | 2025-03-13 15:40 | DI.ECHO.S_ITS ---
[facility]+ [facility] : : [address] : [address] : : [id number] : : Phone: [phone] Echocardiogram Report + + :Name: GUERA CONWAY Study Date: 03/13/2025 Height: 75 in : :Hospital ReadingLocation: Weight: 185 lb : : Gender: Male BSA: 2.1 m2 : :: 1970 Age: 54 yrs BP: 122/88 mmHg: :Reason For Study: NARCOLEPSY, CAROLEE : :Ordering Physician: JENNI, : :AUDREY Performed By: Clarke Philip : :Referring: AUDREY ARTEAGA : + + Interpretation Summary The ejection fraction is estimated to be 55-60%. A prominent eustachian valve is noted. There is mild aortic regurgitation. There is trace tricuspid regurgitation. The right ventricular systolic pressure is estimated to be at least 37 mmHg based on an estimated right atrial pressure of 3 mm Hg. Procedure: A two-dimensional transthoracic echocardiogram with color flow and Doppler was performed. The study quality was technically good. There is no prior echocardiogram noted for this patient. The patient was in normal sinus rhythm during the exam. Left Ventricle: The left ventricle is normal in size. Left ventricular wall thickness is mildly increased. There is no ventricular septal defect visualized. The ejection fraction is estimated to be 55-60%. There are no focal wall motion abnormalities. Diastolic parameters suggest a relaxation abnormality of the left ventricle, consistent with probable normal filling pressures. Right Ventricle: The right ventricle is normal in size and function. Atria: The left atrial size is normal. Right atrial size is normal. A prominent eustachian valve is noted. There is no Doppler evidence for an interatrial shunt. Mitral Valve: The mitral valve leaflets appear normal. There is no evidence of stenosis, fluttering, or prolapse. There is trace mitral regurgitation. Aortic Valve: The aortic valve is trileaflet. The aortic valve is slightly calcified. The aortic valve opens well. There is mild aortic regurgitation. Tricuspid Valve: The tricuspid valve leaflets are thin and pliable. There is trace tricuspid regurgitation. The right ventricular systolic pressure is estimated to be at least 37 mmHg based on an estimated right atrial pressure of 3 mm Hg. Pulmonic Valve: The pulmonic valve is normal in structure and function. There is trace pulmonic regurgitation. Great Vessels: The aortic root is normal size. The dimensions of the ascending aorta are normal. The pulmonary artery is normal size. Pericardium/ Pleura There is no pericardial effusion. There is no pleural effusion. MMode/2D Measurements & Calculations LVIDd: 4.3 cm LVOT diam: 2.4 cm LVIDs: 3.0 cm Ao root diam: 3.9 cm FS: 28.9 % asc Aorta Diam: 4.0 cm EPSS: 0.77 cm Ao Arch Diam (Prox Trans): 1.7 cm IVSd: 1.2 cm LVPWd: 1.2 cm LV han. diameter/BSA (cm/m^2): 2.0 LV sys. diameter/BSA (cm/m^2): 1.4 LA A2 area: 23.4 cm2 RA long axis: 4.9 cm LA A4 area: 14.8 cm2 RA area: 16.9 cm2 LA length (vol): 4.7 cm RA vol: 50.0 ml LA vol: 62.9 ml RA : 23.5 ml/m2 LA vol index: 29.7 ml/m2 IVC diam: 1.5 cm RVD1 (basal): 3.5 cm RVD2 (mid): 3.1 cm TAPSE: 2.2 cm Doppler Measurements & Calculations Ao V2 max: 165.3 cm/sec LVOT Max Bebeto: 138.7 cm/sec Ao V2 mean: 116.9 cm/sec LV V1 max P.7 mmHg Ao max P.9 mmHg LV V1 VTI: 26.4 cm Ao mean P.0 mmHg ASAEL(I,D): 4.0 cm2 Ao V2 VTI: 29.8 cm ASAEL(V,D): 3.8 cm2 sev ratio: 0.88 ASAEL indexed to BSA (cm^2/m^2): 1.9 MV E max bebeto: 79.5 cm/sec TR max bebeto: 293.4 cm/sec MV A max bebeto: 121.1 cm/sec TR max P.4 mmHg MV E/A: 0.66 PA V2 max: 108.2 cm/sec Med Peak E' Bebeto: 7.4 cm/sec PA V2 mean: 79.0 cm/sec E/E' med: 10.8 PA mean P.7 mmHg Lat Peak E' Bebeto: 5.2 cm/sec PA pr(Accel): 41.3 mmHg E/E' lat: 15.3 E/e' average: 13.1 MV dec time: 0.12 sec SV(LVOT): 119.6 ml Reading Physician:05:04 PM
== END ==
PROVIDERS: PCP Internal Medicine; Referring Provider Internal Medicine; Visit Provider Internal Medicine
DX: I35.1 Nonrheumatic aortic (valve) insufficiency (principal); G47.33 Obstructive sleep apnea (adult) (pediatric); G47.419 Narcolepsy without cataplexy
CPT/HCPCS: 93306

== ENCOUNTER → 2025-04-20 12:40 | Outpatient (CLI) | payer OTHER, SELFPAY ==
--- NOTE | 2025-04-20 12:48 | DI.RAD.S_ITS ---
PROCEDURE: XR SKULL<4V INDICATIONS: Presence of other specified functional implants TECHNIQUE: 2 view(s) of the skull acquired. COMPARISON: None. FINDINGS: Bones: No fractures. No suspicious bony lesions. Visualized sinuses appear clear. Soft tissues: No soft tissue calcifications. No suspicious soft tissue densities. Bilateral neural implants and tunneled line within the right neck. IMPRESSION: Bilateral neural implants and tunneled line within the right neck. Dictated by: Alexandru Fagan M.D. on 04/20/2025 at 15:10 Approved by: Alexandru Fagan M.D. on 04/20/2025 at 15:11
--- NOTE | 2025-04-20 12:48 | DI.RAD.S_ITS ---
PROCEDURE: XR CHEST 1V INDICATIONS: Presence of other specified functional implants TECHNIQUE: One view of the chest was acquired. COMPARISON: None. FINDINGS: Surgical changes and devices: Bilateral glenohumeral hardware status post arthroplasty. Generator overlies the right lateral chest wall. Lungs and pleura: Lungs are clear. No pleural effusions or pneumothorax. Mediastinum: Mediastinal contours appear normal. Heart size is normal. Bones and chest wall: No suspicious bony lesions. Overlying soft tissues appear unremarkable. IMPRESSION: No acute cardiopulmonary abnormality is seen. Dictated by: Alexandru Fagan M.D. on 04/20/2025 at 15:09 Approved by: Alexandru Fagan M.D. on 04/20/2025 at 15:10
== END ==
LOC: RAD 12:46
PROVIDERS: PCP Internal Medicine; Referring Provider Orthopaedic Surgery Foot and Ankle Surgery; Visit Provider Orthopaedic Surgery Foot and Ankle Surgery
DX: Z96.89 Presence of other specified functional implants (principal); Z95.810 Presence of automatic (implantable) cardiac defibrillator
CPT/HCPCS: 70260; 71045

== ENCOUNTER → 2025-07-05 16:03 | Outpatient (CLI) | payer OTHER, SELFPAY ==
[2025-07-05 18:32] LABS: Hematocrit 40.8 % (41-53); Hemoglobin 13.9 g/dL (13.5-17.5); Mean Corpuscular HGB Conc 34.0 % (30-36); Mean Corpuscular Hemoglobin 30.9 PG (26-34); Mean Corpuscular Volume 90.8 fL (80-100); Platelet Count 282 X10^3/uL (150-400)
[2025-07-05 18:51] LABS: Alanine Aminotransferase 31 IU/L (<50); Albumin 4.7 g/dL (3.5-5.0); Albumin Globulin Ratio 1.7 (1.0-2.8); Alkaline Phosphatase 60 U/L (38-126); Blood Urea Nitrogen 12 mg/dL (9-20); Calcium 10.2 mg/dL (8.4-10.2); Carbon Dioxide 31 mmol/L (22-32); Chloride 99 mmol/L (98-107); Cholesterol 199 mg/dL (140-199); Estimated Glomerular Filt Rate > 60 mL/min (>60); Globulin 2.7 g/dL (1.7-4.1); Glucose 88 mg/dL (70-99); HDL Cholesterol 62 mg/dL (40-60); HEMOLYSIS < 15 (0-50); Sodium 138 mmol/L (137-145); Total Protein 7.4 g/dL (6.3-8.2); Triglycerides 78 mg/dL (35-150)
[2025-07-05 18:52] LABS: Potassium 5.5 mmol/L (3.4-5.1)
== END ==
PROVIDERS: PCP Internal Medicine; Referring Provider Internal Medicine; Visit Provider Internal Medicine
DX: E78.2 Mixed hyperlipidemia (principal); G47.419 Narcolepsy without cataplexy; R79.89 Other specified abnormal findings of blood chemistry; Z12.5 Encounter for screening for malignant neoplasm of prostate
CPT/HCPCS: 36415; 80053; 80061; 82670; 82677; 82679; 84403; 85027; G0103

== ENCOUNTER → 2025-07-06 09:57 | Outpatient (CLI) | payer OTHER, SELFPAY ==
[2025-07-06 12:03] LABS: HEMOLYSIS < 15 (0-50); Potassium 5.2 mmol/L (3.4-5.1)
== END ==
LOC: LAB 09:58
PROVIDERS: PCP Internal Medicine; Referring Provider Internal Medicine; Visit Provider Internal Medicine
DX: E87.5 Hyperkalemia (principal)
CPT/HCPCS: 36415; 84132